=== PATIENT | female | born 1980 | race Caucasian/White ===

== ENCOUNTER 2017-08-26 09:52 | Emergency (ER) | payer OTHER ==
[~2017-08-26] VITALS: Ht 170.2 cm; Wt 84.8 kg
[~2017-08-26 09:52] MED LIST: FLEXERIL10 MG PO; MEDROL4 MG PO; MOTRIN 600 MG600 MG PO; NICOTINE PATCH1 EAC1 TD; NORCO 325 MG-51 TAB PO; SOMA350 M1 PO; VICODIN 300 MG-1 TAB PO; ZITHROMAX250 M2 PO; ZOFRAN ODT4 M1 SL
[2017-08-26] MEDS ORDERED: OXYCODONE HCL15 M1 PO (11:12)
[2017-08-26] MEDS ORDERED: ALLEGRA ALLERG180 M1 PO (11:13)
[2017-08-26 12:22] LABS: ABSOLUTE BASOPHIL COUNT 0.1 /CUMM (0.0-0.2); ABSOLUTE EOSINOPHIL COUNT 0.1 /CUMM (0.0-0.7); ABSOLUTE GRANULOCYTE CT 6.9 /CUMM (1.4-6.5); ABSOLUTE LYMPH COUNT 2.6 /CUMM (1.2-3.4); ABSOLUTE MONOCYTE COUNT 0.4 /CUMM (0.10-0.60); BASOPHIL % 0.5 % (0.0-2.0); EOSINOPHIL % 0.7 % (0-5); GRANULOCYTE % 68.7 % (42.2-75.2); HEMATOCRIT 40.4 % (37-47); MEAN CORPUSCULAR HGB 31.4 PG (27.0-31.0); MEAN CORPUSCULAR HGB CONC 34.3 G/DL (33.0-37.0); MEAN CORPUSCULAR VOLUME 91.5 FL (81.0-99.0); MEAN PLATELET VOLUME 8.1 FL (7.4-10.4); PLATELET COUNT 213 /CUMM (130-400); RBC DISTRIBUTION WIDTH 13.4 % (11.5-14.5); RED BLOOD CELL CT 4.42 /CUMM (4.20-5.40); WHITE BLOOD CELL COUNT 10.1 /CUMM (4.8-10.8)
--- NOTE | 2017-08-26 12:31 | RADIOLOGY REPORT ---
EXAMINATION: XR CHEST CLINICAL INFORMATION: Rule out pneumonia, COPD, effusion COMPARISON: 09/11/2016 TECHNIQUE: PA and lateral views of the chest were obtained. FINDINGS: No consolidation, pneumothorax, or pleural effusion. Cardiac and mediastinal contours are normal. Pulmonary vasculature is unremarkable. Trachea is midline. Mild degenerative spondylosis is present in the thoracic spine IMPRESSION: No acute pulmonary findings.
--- NOTE | 2017-08-26 13:00 | ED DYSPNEA/ASTHMA COMPLAINT ---
See Addendum History of Present Illness General Chief Complaint: Dyspnea (COPD, CHF, Other) Stated Complaint: SOB X 1 WEEK Source: patient Exam Limitations: no limitations Allergies Coded Allergies: erythromycin base (HIVES 08/26/17) morphine (Intermediate, VOMITING 08/26/17) Reconcile Medications Albuterol Sulfate (Proventil Hfa) 90 MCG HFA.AER.AD 2 PUF INH Q4 PRN shortness of breath Fexofenadine HCl (Frances Allergy) 180 MG TABLET 1 TAB PO DAILY ALLERGIES ( Reported) Lorazepam (Ativan) 0.5 MG TABLET 1 TAB PO BIDP PRN anxiety Oxycodone HCl 15 MG TABLET 1 TAB PO 4 TIMES/DAY PAIN (Reported) Triage Note: 37F REPORTS ONE WEEK OF DIFFICULTY BREATHING STATING "I FEEL LIKE I CAN'T GET ANY AIR". O2 SAT 100% BUT APPEARS UNCOMFORTABLE TAKING BREATH - OCCASSIONALLY TRIPODS TO BREATHE IN TRIAGE. REPORTS ONLY OCCASSIONAL DRY COUGH WITH DEEP INSPIRATION. DENIES NOTABLE ANXIETY HX. ENDORSES SOME TIGHTNESS IN EPIGASTRIC AREA, DENIES GERD HX. +SMOKER, MIRENA IUD. +SEASONAL ALLERGIES AND ASTHMA Triage Nurses Notes Reviewed? yes Onset: Gradual Duration: week(s): Timing: recent history Severity: moderate : No Patient currently breastfeeds: No HPI: 37yo female with hx of daily tobacco use presents to ED complaining of dyspnea intermittently x 1 week. Patient states that she can't get any air in. She has not noticed any exacerbating factors. Patient states she has had a episode of dyspnea last summer as well however states at that time nothing was wrong. Patient reports intermittent dry cough. She also reports bilateral chest discomfort associated with her dyspnea. Patient denies fevers, chills, sputum production, hemoptysis, malaise, abdominal pain. (Ivana DOCKERY,Louisa Vela) Vital Signs & Intake/Output Vital Signs & Intake/Output Vital Signs Date Time Temp Pulse Resp B/P B/P Pulse O2 O2 Flow FiO2 Mean Ox Delivery Rate 08/26 1315 98.3 65 18 106/58 100 Room Air 08/26 1200 99 08/26 1108 68 116/64 100 08/26 0958 96.0 24 100 Room Air ED Intake and Output 08/27 0000 08/26 1200 Intake Total Output Total Balance Patient 187 lb Weight (Sonny Burns DO) Past History Travel History Traveled to [place] past 21 day No Medical History Any Pertinent Medical History? 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 No (Ivana DOCKERY,Louisa Vela) Review of Systems Review of Systems Constitutional: Reports: no symptoms. EENTM: Reports: no symptoms. Respiratory: Reports: see HPI. Cardiovascular: Reports: see HPI. GI: Reports: no symptoms. Genitourinary: Reports: no symptoms. Musculoskeletal: Reports: no symptoms. Skin: Reports: no symptoms. Neurological/Psychological: Reports: no symptoms. Hematologic/Endocrine: Reports: no symptoms. Immunologic/Allergic: Reports: no symptoms. All Other Systems: Reviewed and Negative (Ivana DOCKERY,Louisa Vela) Physical Exam Physical Exam General Appearance: well developed/nourished, no apparent distress, alert, awake Head: atraumatic, normal appearance Eyes: Bilateral: normal appearance. Ears, Nose, Throat: hearing grossly normal Neck: normal inspection, supple, full range of motion Respiratory: normal breath sounds, no respiratory distress, lungs clear, anterior chest tenderness Cardiovascular: regular rate/rhythm, normal peripheral pulses Peripheral Pulses: 2+ radial (R), 2+ radial (L) Extremities: normal inspection, normal range of motion Neurologic/Psych: awake, alert, oriented x 3 Skin: intact, normal color, warm/dry Core Measures ACS in differential dx? Yes CVA/TIA Diagnosis No Sepsis Present: No Sepsis Focused Exam Completed? No (Louisa Florian) Progress Differential Diagnosis: asthma, AMI, costochondritis, CHF, COPD, pulmonary embolism, pneumonia, pneumothorax Diagnostic Imaging: Viewed by Me: Radiology Read. Discussed w/RAD: Radiology Read. Radiology Impression: PATIENT: SMITH ANDRADE PRESENT AGE: 37 PATIENT ACCOUNT NO: [id number] : 82 LOCATION: [facility] ORDERING PHYSICIAN: Louisa DOCKERY SERVICE DATE: 08/26/17 EXAM TYPE: RAD - XRY-CHEST XRAY, TWO VIEWS EXAMINATION: XR CHEST CLINICAL INFORMATION : Rule out pneumonia, COPD, effusion COMPARISON: 09/11/2016 TECHNIQUE: PA and lateral views of the chest were obtained. FINDINGS: No consolidation, pneumothorax, or pleural effusion. Cardiac and mediastinal contours are normal. Pulmonary vasculature is unremarkable. Trachea is midline. Mild degenerative spondylosis is present in the thoracic spine IMPRESSION: No acute pulmonary findings. DICTATED BY: Higinio Arnold MD DATE/TIME DICTATED:08/26/171225 DEVELOPMENT EDITOR:DOMENIC DATE/TIME TRANSCRIBED:08/26/171225 CONFIDENTIAL, DO NOT COPY WITHOUT APPROPRIATE AUTHORIZATION. <Electronically signed in Other Vendor System> SIGNED BY: Higinio Arnold MD 08/26/17 1231 Initial ED EKG: sinus rhythm @52bpm, nonspecific ST changes Prior EKG: unchanged (12/20/15) (Ivana DOCKERY,Louisa Vela) Plan of Care: Orders Procedure Date/time Status AEROSOL (GEN) 08/26 1203 Complete URINE 08/26 1129 Complete TROPONIN LEVEL 08/26 1129 Complete COMPREHENSIVE METABOLIC PANEL 08/26 1129 Complete CBC WITHOUT DIFFERENTIAL 08/26 112 Complete EKG 08/26 1129 Active Laboratory Tests 08/26/17 1215: Anion Gap 11, Estimated GFR > 60, BUN/Creatinine Ratio 15.0, Glucose 90, Calcium 9.2, Total Bilirubin 0.8, AST 21, ALT 20, Alkaline Phosphatase 50, Troponin I < 0.01, Total Protein 7.5, Albumin 4.1, Globulin 3.4, Albumin/Globulin Ratio 1.2, CBC w Diff NO MAN DIFF REQ, RBC 4.42, MCV 91.5, MCH 31.4 H, MCHC 34.3, RDW 13.4 , MPV 8.1, Gran % 68.7, Lymphocytes % 26.3, Monocytes % 3.8, Eosinophils % 0.7, Basophils % 0.5, Absolute Granulocytes 6.9 H, Absolute Lymphocytes 2.6, Absolute Monocytes 0.4, Absolute Eosinophils 0.1, Absolute Basophils 0.1 08/26/17 1135: Urine Test NEGATIVE Patient's chest x-ray is clear, no evidence of acute pneumonia. Vital signs show no hypoxia. She has no chest pain. Labs are stable, troponin enzymes negative, EKG without acute ischemic changes. There is low suspicion for acute cardiac pathology based on these findings. The patient is a daily tobacco smoker, this may be a factor in her current dyspnea. Patient reports some relief following DuoNeb. We'll prescribe albuterol inhaler to help with her dyspnea and have patient follow-up with office executive. Possibility of reactive airway disease, possible allergies. Patient sitting in stretcher with no acute distress, her vital signs are stable. The patient agrees with the plan of care. The patient was discussed with Dr. Burns who agrees with this plan. (Ivana DOCKERY,Louisa Vela) (Sonny Burns DO) Departure Departure Disposition: HOME OR SELF CARE Condition: Stable Clinical Impression Primary Impression: Dyspnea Qualifiers: Dyspnea type: unspecified Qualified Code: R06.00 - Dyspnea, unspecified Referrals: Angelito EVANS,Otilia Schmitt (PCP/Family) Aron Lai MD Additional Instructions: Use albuterol inhaler as prescribed. Take Ativan as prescribed as needed for anxiety. Follow-up with the office executive, call to make an appointment until today. With any worsening symptoms or other concerns please return to the emergency department. Please note that there might be incidental findings in your evaluation that are unrelated to the current emergency department visit. Please notify your primary care doctor about this emergency department visit in order to obtain and review all of the testing performed so that these incidental findings can be monitored as needed. If you had an x-ray performed, please understand that some fractures may not be seen on the initial set of x-rays. If your symptoms persist you might need a repeat set of x-rays to check for such a fracture. If you had a laceration evaluated, please understand that foreign bodies such as glass or wood may not be visible to the naked eye or on plain x-rays. If the wound becomes red, swollen, increasingly more painful or if there is any drainage from the wound, please have it reevaluated by a physician for the possibility of a retained foreign body. If you're unable to follow up as outlined in the discharge instructions please return to the emergency department. Thank you for choosing the [facility] Emergency Department for your care. It was a pleasure to serve you today. Departure Forms: Customer Survey General Discharge Information Prescriptions: Current Visit Scripts Albuterol Sulfate (Proventil Hfa) 2 PUF INH Q4 PRN shortness of breath #1 INHAL Lorazepam (Ativan) 1 TAB PO BIDP PRN anxiety #10 TAB (Ivana DOCKERY,Louisa Vela) PA/SIGNALS INTELLIGENCE ANALYSIS MANAGER Co-Sign Statement Statement: ED Attending supervision documentation- [] I saw and evaluated the patient. I have also reviewed all the pertinent lab results and diagnostic results. I agree with the findings and the plan of care as documented in the PA's/SIGNALS INTELLIGENCE ANALYSIS MANAGER's documentation. [x] I have reviewed the ED Record and agree with the PA's/SIGNALS INTELLIGENCE ANALYSIS MANAGER's documentation. [] Additions or exceptions (if any) to the PAs/SIGNALS INTELLIGENCE ANALYSIS MANAGER's note and plan are summarized below: [] (Sonny Burns DO) Critical Care Note Critical Care Note Critical Care Time: non-applicable (Louisa Florian)
[2017-08-26 13:15] VITALS: BP 106/58
[2017-08-26] MEDS ORDERED: PROVENTIL HFA6.7 GM INH (13:34)
[2017-08-26] MEDS ORDERED: ATIVAN0.5 M1 PO (13:34)
== END 2017-08-26 13:40 ==
LOC: ERH 09:52
PROVIDERS: Physician Assistant
DX: R06.00 Dyspnea, unspecified (principal)
CPT/HCPCS: 1263; 71046; 81025; 93005; 93010